=== PATIENT | female | born 1955 | race Asian ===

== ENCOUNTER 2019-12-12 06:43 | Day surgery (SDC) | payer MEDICARE, MEDICAID ==
[~2019-12-12] VITALS: Ht 149.9 cm; Wt 63.0 kg
[2019-12-12] VITALS (7 sets, daily range): BP systolic 114–128; BP diastolic 75–89
[2019-12-12] MEDS ORDERED: ATOR10TA70 PO (07:47)
[2019-12-12] MEDS ORDERED: METF-950 PO (07:47)
[2019-12-12] MEDS ORDERED: ringers solution, lacted 1,000 ML IV SCH (07:50)
[2019-12-12] MEDS ORDERED: famotidine 20mg tablet PO ONE (07:50)
[2019-12-12 08:40] LABS: BASOPHILS % (AUTO) 0.3 % (0-1); EOSINOPHILS % (AUTO) 0.5 % (0-6); LYMPHOCYTES % (AUTO) 34.3 % (21-51); MEAN CORPUSCULAR HEMOGLOBIN 28.2 PG (27.0-31.0); MEAN CORPUSCULAR VOLUME 82.9 FL (78-98); MEAN PLATELET VOLUME 7.9 FL (7.4-10.4); MONOCYTES # (AUTO) 0.3 X10'3 (0-0.9); MONOCYTES % (AUTO) 5.4 % (2-12); NEUTROPHILS # (AUTO) 3.5 X10'3 (1.8-7.7); NEUTROPHILS % (AUTO) 59.5 % (42-75); PRE OP HEMATOCRIT 41.4 % (35.0-45.0); PRE OP HEMOGLOBIN 14.1 g/dL (12.0-16.0); PRE OP PLATELET COUNT 240 X10'3 (140-440); RED CELL DISTRIBUTION WIDTH 12.9 % (11.5-14.5)
[2019-12-12 08:49] LABS: ALBUMIN 3.7 G/DL (3.4-5.0); ALBUMIN/GLOBULIN RATIO 0.8 (1.1-1.5); ALKALINE PHOSPHATASE 52 IU/L (46-116); BLOOD UREA NITROGEN 7 MG/DL (7-18); BUN/CREATININE RATIO 10.1 (6.6-38.0); CALCIUM 9.1 MG/DL (8.5-10.1); CHLORIDE 104 MMOL/L (99-107); CREATININE 0.69 MG/DL (0.40-0.90); PRE OP ALT 18 U/L (30-65); PRE OP ANION GAP 10 (8-16); PRE OP AST 20 U/L (10-37); PRE OP BILIRUB, TOTAL 0.3 MG/DL (0.0-1.0); PRE OP GLUCOSE 145 MG/DL (70-104); PRE OP POTASSIUM 3.9 MMOL/L (3.4-5.1); PRE OP SODIUM 141 MMOL/L (135-145); TOTAL CARBON DIOXIDE 27.3 MMOL/L (24-32); TOTAL PROTEIN 8.2 G/DL (6.4-8.2); eGFR 85 ML/MIN
[2019-12-12] MEDS ORDERED: diazepam 5mg tablet PO ONE (09:00)
[2019-12-12] MEDS ORDERED: dexamethasone sod phosphate 10mg/ml inj ONE (10:46)
[2019-12-12] MEDS ORDERED: ondansetron/PF 4mg/2ml inj ONE (10:46)
[2019-12-12] MEDS ORDERED: sevoflurane 250ml liquid IH ONE (10:46)
[2019-12-12] MEDS ORDERED: fentaNYL/PF 50MCG/1 ML 2ML syringe ONE (10:50)
[2019-12-12] MEDS ORDERED: midazolam 2 mg/2 ml injection ONE (10:51)
[2019-12-12] MEDS ORDERED: LIDOcaine 2% (20mg/ml) 5ml vial ONE (11:03)
[2019-12-12] MEDS ORDERED: propofol inj 20 ML IV ONE (11:03)
[2019-12-12] MEDS ORDERED: ceFAZolin 1000mg inj ONE ×2 (11:11)
[2019-12-12] MEDS ORDERED: BUPIVAcaine/PF 2.5 mg/ml (0.25%) 30ml vial IJ ONE (11:20)
--- NOTE | 2019-12-12 11:41 | NUR ---
Received from OR via [facility] , accompanied by Anesthesiologist NESS and report given by Anesthesiolgist. PATIENT WITH 20G PIV IN LEFT UE RUNNING LR AT 100. DENIES PAIN.(FAMILY TRANSLATING AT BEDSIDE) ANTEROR RIGHT NECK FOAM DRESSING. Addendum: 12/12/19 at 1152 by Johnathon Michaud RN, RN Amended: Links added.
--- NOTE | 2019-12-12 12:31 | NUR ---
ALL DC CRITERIA HAS BEEN MET. IV TAKEN OUT WITHOUT COMPLICATIONS. ALL INSTRUCTIONS COVERED AND ALL QUESTIONS ANSWERED. DRESSINGS CDI. OUT VIA WHEELCHAIR TO PERSONAL VEHICLE WHERE PATIENT WAS SECURED IN AND DRIVEN HOME BY FAMILY. FAMILY PRESENT FOR DC AND FOR TRANSLATION, DRESSING PATIENT. NO DRAINAGE PRESENT TO NECK DRESSING. ALL DC INSTRUCTIONS COVERED WITH FAMILY. Addendum: 12/12/19 at 1236 by Johnathon Michaud RN, RN Amended: Links added.
== END 2019-12-12 12:31 | disposition home or self-care (01) ==
LOC: PAS 06:43
PROVIDERS: ATTEND Surgery
DX: R22.1 Localized swelling, mass and lump, neck (principal); C85.11 Unspecified B-cell lymphoma, lymph nodes of head, face, and neck; E11.9 Type 2 diabetes mellitus without complications; E78.5 Hyperlipidemia, unspecified; Z79.84 Long term (current) use of oral hypoglycemic drugs; Z79.899 Other long term (current) drug therapy
CPT/HCPCS: 36415; 38500; 80053; 85025; 88184; 88185; 93005; 93306; J0690; J1100; J2001; J2250; J2405; J2704; J3010; J3490; A4215; A4618; A6449; A7000; J7120

== ENCOUNTER 2019-12-13 10:53 | Day surgery (SDC) | payer MEDICARE, MEDICAID ==
[~2019-12-13] VITALS: Ht 152.4 cm; Wt 62.8 kg
[~2019-12-13 10:53] MED LIST: ATOR10TA70 PO; METF-950 PO
[2019-12-13] MEDS ORDERED: normal saline 1000ml 1,000 ML IV SCH (11:15)
[2019-12-13 11:17] VITALS: BP 130/90
[2019-12-13] MEDS ORDERED: midazolam 2 mg/2 ml injection ONE (12:14)
[2019-12-13] MEDS ORDERED: heparin sodium, porcine/PF 100unit/ml 5ML syringe ONE (12:14)
[2019-12-13] MEDS ORDERED: LIDOcaine 1%/PF 5ML 10 MG/ML VIAL ONE (12:14)
[2019-12-13] MEDS ORDERED: fentaNYL/PF 50MCG/1 ML 2ML syringe ONE (12:15)
[2019-12-13 14:00] VITALS: BP 127/59
[2019-12-13 14:15] VITALS: BP 115/73
[2019-12-13 14:30] VITALS: BP 129/70
[2019-12-13 14:45] VITALS: BP 120/74
[2019-12-13 15:00] VITALS: BP 122/77
== END 2019-12-13 15:40 | disposition home or self-care (01) ==
LOC: SSTAY O 10:53
PROVIDERS: ATTEND Radiology Vascular & Interventional Radiology
DX: C83.31 Diffuse large B-cell lymphoma, lymph nodes of head, face, and neck (principal); E78.5 Hyperlipidemia, unspecified; E11.9 Type 2 diabetes mellitus without complications; Z98.890 Other specified postprocedural states; Z79.899 Other long term (current) drug therapy; Z79.84 Long term (current) use of oral hypoglycemic drugs
CPT/HCPCS: 36561; 76937; 77001; 82948; 88341; 88342; 99152; 99153; C1769; C1788; C1894; J1642; J2250; J3010; J7030; 88305; 88360